=== PATIENT | male | born 1960 | race African-American/Black ===

== ENCOUNTER 2018-01-06 17:30 | Emergency (ER) | payer MEDICARE ==
[~2018-01-06] VITALS: Ht 165.1 cm; Wt 59.0 kg
[2018-01-06 19:56] LABS: BASOPHILS % 1.3 % (0.0-2.0); EOSINOPHILS % 1.9 % (0.0-5.0); HEMATOCRIT. 46.2 % (42.0-52.0); HEMOGLOBIN. 15.4 g/dL (14.0-18.0); MEAN CORPUSCULAR HEMOGLOBIN 30.8 pg (28.0-32.0); MEAN CORPUSCULAR VOLUME 92.6 fL (80.0-94.0); MONOCYTES % 12.9 % (2.0-8.0); NEUTROPHILS % 46.9 % (40.0-76.0); PLATELET 216 x1000/uL (130-400); RED BLOOD CELL COUNT 4.98 mill/uL (4.7-6.1); RED CELL DISTRIBUTION WIDTH 14.5 % (11.6-14.6)
[2018-01-06 19:59] LABS: INR 1.1; PROTHROMBIN TIME 11.5 sec (9.4-11.6)
[2018-01-06 20:00] LABS: CHLORIDE 100 mEq/L (98-107)
[2018-01-07] MEDS ORDERED: ONDANSETRON HCL 4MG/2ML VIAL IV STA (06:43)
[2018-01-07] MEDS ORDERED: SODIUM CHLORIDE 0.9% 1,000 ML IV ONE (06:43)
[2018-01-07] MEDS ORDERED: KETOROLAC 30MG/ML VIAL IV STA (06:43)
[2018-01-07 06:53] LABS: CLARITY URINE CLEAR (CLEAR); COLOR URINE DARK YELLOW (YELLOW); KETONES URINE 1+ (NEGATIVE); LEUKOCYTE ESTERASE URINE TRACE (NEGATIVE); NITRITE URINE NEGATIVE (NEGATIVE); OCCULT BLOOD URINE NEGATIVE (NEGATIVE); PH URINE 6.5 (4.5-8.0); PROTEIN URINE 1+ (NEGATIVE); SPECIFIC GRAVITY URINE 1.031 (1.005-1.030)
[2018-01-07 09:21] VITALS: BP 124/63
== END 2018-01-07 09:24 | disposition home or self-care (01) ==
LOC: ER 17:30
DX: K29.00 Acute gastritis without bleeding (principal); K59.00 Constipation, unspecified; F17.210 Nicotine dependence, cigarettes, uncomplicated
CPT/HCPCS: 36415; 80053; 81003; 83690; 85025; 85610; 96361; 96374; 96375; 99284; J1885; J2405; J7030